=== PATIENT | female | born 1925 | race Hispanic/Latino ===

== ENCOUNTER 2016-02-27 17:02 | Outpatient (CLI) | payer MEDICARE ==
--- NOTE | 2016-02-27 17:55 | Cat Scan Report ---
FINAL REPORT EXAM: CT HEAD/BRAIN WO CON HISTORY: TRAUMATIC HEAD INJURY, INITAL ENCOUNTER 959.01Please call both [facility] and [facility], TECHNIQUE: CT head without contrast PRIORS: Compared comparison is dated December 02, 2008 FINDINGS: No acute intra-axial or extra-axial hemorrhage is identified. There is no evidence of midline shift or mass effect. The ventricles and sulci are within normal limits. Ruggiero-white matter differentiation is intact. No acute parenchymal abnormalities seen. There are patchy and confluent hypodensities within the supratentorial white matter. Bony calvarium is grossly intact. Visualized portions of the mastoids and paranasal sinuses are unremarkable. 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
== END 2016-02-27 17:03 | disposition home or self-care (01) ==
LOC: CT 17:02
PROVIDERS: ATTEND Internal Medicine
DX: S09.90XA Unspecified injury of head, initial encounter (principal); X58.XXXA Exposure to other specified factors, initial encounter; Y93.89 Activity, other specified; Y92.89 Other specified places as the place of occurrence of the external cause; Y99.8 Other external cause status
CPT/HCPCS: 70450